=== PATIENT | male | born 1970 | race African-American/Black ===

== ENCOUNTER 2017-10-23 23:05 | Emergency (ER) | payer SELFPAY ==
[~2017-10-23] VITALS: Ht 165.1 cm; Wt 83.9 kg
[2017-10-23 23:31] VITALS: BP 117/75
[2017-10-23 23:45] LABS: APPEARANCE,URINE CLEAR; BILIRUBIN, URINE NEGATIVE (NEGATIVE); GLUCOSE, URINE (UA) NEGATIVE (NEGATIVE); KETONES,URINE NEGATIVE (NEGATIVE); LEUKOCYTE ESTERASE ,URINE NEGATIVE (NEGATIVE); NITRITE,URINE NEGATIVE (NEGATIVE); PH,URINE 5 (4.5-8.0); PROTEIN,URINE NEGATIVE (NEGATIVE); UROBILINOGEN,URINE 4 MG/DL (0.0-1.0)
[2017-10-23 23:47] LABS: COLOR,URINE YELLOW
--- NOTE | 2017-10-23 23:47 | Emergency Room Report ---
History of Present Illness General Chief Complaint: Male Urogenital Problems Source: Patient Present Illness HPI Is a 47-year-old male with no past medical history. He presents with chief complaint of pain to the bilateral groin area. Initially she was bleeding. Pain is been there for a while now. He was seen at another hospital a week ago the same thing. No trauma. No fever or chills. No urinary complaint. Not a diabetic. Allergies: Coded Allergies: No Known Allergies (Unverified , 10/23/17) Patient History Past Medical History: see triage record, old chart reviewed Past Surgical History: none Pertinent Family History: none Social History: Denies: smoking Immunizations: other Reviewed Nursing Documentation: PMH: Agreed, PSxH: Agreed Nursing Documentation-PMH Past Medical History: No Stated History Review of Systems Eye: Denies: eye pain, blurred vision ENT: Denies: ear pain, nose congestion, throat swelling Respiratory: Denies: cough, shortness of breath Cardiovascular: Denies: chest pain, palpitations Gastrointestinal: Denies: abdominal pain, diarrhea, nausea, vomiting Musculoskeletal: Denies: back pain, joint pain Skin: Denies: rash Neurological: Denies: headache, numbness Endocrine: Denies: increased thirst, increased urine Hematologic/Lymphatic: Denies: easy bruising All Other Systems: negative except mentioned in HPI Physical Exam Vital Signs Date Time Temp Pulse Resp B/P (MAP) Pulse Ox O2 Delivery O2 Flow Rate FiO2 10/23/17 23:13 97.0 88 15 117/75 96 Room Air vitals normal Sp02 EP Interpretation: reviewed, normal General Appearance: well appearing, no apparent distress, alert, obese Head: normocephalic, atraumatic Eyes: bilateral eye PERRL, bilateral eye EOMI ENT: hearing grossly normal, normal pharynx Neck: full range of motion, supple, no meningismus Respiratory: chest non-tender, lungs clear, normal breath sounds Cardiovascular #1: regular rate, rhythm, no murmur Gastrointestinal: normal bowel sounds, non tender, no mass, no organomegaly, no bruit, non-distended Genitourinary: other - Right inguinal area with mild skin irritation. No active bleeding. No testicular tenderness. He is uncircumcised. No bleeding. Musculoskeletal: back normal, gait/station normal, normal range of motion Psychiatric: mood/affect normal Skin: warm/dry Medical Decision Making Diagnostic Impression: Primary Impression: [facility] ER Course Patient with skin breakdown from poor hygiene. May have fungal infection. No evidence of cellulitis. No evidence of Devante's disease. We'll discharge home. Last Vital Signs Date Time Temp Pulse Resp B/P (MAP) Pulse Ox O2 Delivery O2 Flow Rate FiO2 10/23/17 23:31 97.0 88 15 117/75 96 Room Air Status: unchanged Disposition: HOME, SELF-CARE Condition: Stable Scripts Clotrimazole* (LOTRIMIN*) 15 Gm Cream..g. 1 APPLIC TOPIC TWICE A DAY, #30 GM Prov: TE LAZAR M.D. 10/23/17 Additional Instructions: Followup with your Dr. in 7 days. Return if worse. TE LAZAR M.D. Oct 23, 2017 23:47
[2017-10-23] MEDS ORDERED: CLOTRIMAZOLE15 GM TOPIC (23:56)
== END 2017-10-24 | disposition home or self-care (01) ==
LOC: EMR 23:15
DX: L30.4 Erythema intertrigo (principal)
CPT/HCPCS: 81003; 99283